=== PATIENT | female | born 1980 | race Caucasian/White ===

== ENCOUNTER 2021-07-22 10:33 | Emergency (ER) | payer MEDICAID ==
[~2021-07-22] VITALS: Ht 167.6 cm; Wt 75.0 kg
[~2021-07-22 10:33] MED LIST: BENZ-16 PO; DICY10CA88 PO; HYDR-3965 PO; HYDR-4383 PO; ONDA4TAB12 PO; ONDA4TAB6 PO; ONDA8TAB9 PO; POLY17PO10 PO; ZOF4T PO
[2021-07-22 10:51] VITALS: BP 129/90
[2021-07-22 11:52] LABS: BASOPHILS % (AUTO) 1.7 % (0-1); EOSINOPHILS # (AUTO) 0.1 X10'3 (0-0.9); EOSINOPHILS % (AUTO) 4.6 % (0-6); HEMATOCRIT 38.5 % (35.0-45.0); HEMOGLOBIN 13.2 g/dl (12.0-16.0); LYMPHOCYTES % (AUTO) 46.2 % (21-51); MEAN CORPUSCULAR HEMOGLOBIN 28.2 PG (27.0-31.0); MEAN CORPUSCULAR HGB CONC 34.3 g/dL (33.0-36.5); MEAN CORPUSCULAR VOLUME 82.4 FL (78-98); MEAN PLATELET VOLUME 6.3 FL (7.4-10.4); MONOCYTES # (AUTO) 0.3 X10'3 (0-0.9); MONOCYTES % (AUTO) 12.4 % (2-12); NEUTROPHILS # (AUTO) 0.8 X10'3 (1.8-7.7); NEUTROPHILS % (AUTO) 35.1 % (42-75); PLATELET COUNT 291 X10'3 (140-440); RED BLOOD COUNT 4.67 X10'6 (4.20-5.60); RED CELL DISTRIBUTION WIDTH 14.2 % (11.5-14.5); WHITE BLOOD COUNT 2.2 X10'3 (4.5-11.0)
[2021-07-22 12:04] LABS: ALANINE AMINOTRANSFERASE 21 U/L (12-78); ALBUMIN 3.5 G/DL (3.4-5.0); ALBUMIN/GLOBULIN RATIO 0.8 (1.1-1.5); ALKALINE PHOSPHATASE 36 IU/L (46-116); ANION GAP 4 (8-16); ASPARTATE AMINO TRANSFERASE 15 U/L (10-37); BILIRUBIN,TOTAL 0.4 MG/DL (0.1-1.0); BLOOD UREA NITROGEN 10 MG/DL (7-18); BUN/CREATININE RATIO 15.6 (6.6-38.0); CALCIUM 8.4 MG/DL (8.5-10.1); CHLORIDE 107 MMOL/L (99-107); CREATININE 0.64 MG/DL (0.40-0.90); GLUCOSE 101 MG/DL (70-104); LIPASE 160 U/L (73-393); POTASSIUM 4.3 MMOL/L (3.5-5.1); SODIUM 140 MMOL/L (135-145); TOTAL CARBON DIOXIDE 29.3 MMOL/L (24-32); eGFR > 90 ML/MIN
[2021-07-22 12:33] LABS: MICROCYTOSIS 1+; PLATELET ESTIMATE NORMAL; TOTAL CELLS COUNTED 100
[2021-07-22] MEDS ORDERED: ONDA4TAB12 PO (12:56)
== END 2021-07-22 13:02 | disposition home or self-care (01) ==
LOC: ER 10:34
DX: U07.1 COVID-19 (principal); R43.8 Other disturbances of smell and taste; E86.0 Dehydration; R10.11 Right upper quadrant pain; R11.0 Nausea; R19.7 Diarrhea, unspecified; R50.9 Fever, unspecified; Z87.01 Personal history of pneumonia (recurrent); Z87.442 Personal history of urinary calculi; Z90.49 Acquired absence of other specified parts of digestive tract; Z98.51 Tubal ligation status; Z98.890 Other specified postprocedural states; Z88.2 Allergy status to sulfonamides; Z88.1 Allergy status to other antibiotic agents; Z88.5 Allergy status to narcotic agent; Z79.899 Other long term (current) drug therapy
CPT/HCPCS: 36415; 71045; 80053; 83690; 85007; 85025; 85379; 99284

== ENCOUNTER 2023-07-18 08:25 | Emergency (ER) | payer MEDICAID ==
[~2023-07-18] VITALS: Ht 167.6 cm; Wt 79.9 kg
[2023-07-18 08:27] VITALS: TEMP 98.3
[2023-07-18] MEDS: diphenhydrAMINE 50 mg/ml inj IV ONE (08:55)
[2023-07-18 09:02] LABS: URINE HCG NEGATIVE (NEG)
[2023-07-18 09:14] LABS: EOSINOPHILS # (AUTO) 0.2 X10'3 (0-0.9); HEMATOCRIT 40.5 % (35.0-45.0); MONOCYTES # (AUTO) 0.5 X10'3 (0-0.9); NEUTROPHILS # (AUTO) 1.6 X10'3 (1.8-7.7)
[2023-07-18 09:17] LABS: BASOPHILS % (AUTO) 1.3 % (0-1); EOSINOPHILS % (AUTO) 4.8 % (0-6); HEMOGLOBIN 13.5 g/dl (12.0-16.0); LYMPHOCYTES % (AUTO) 31.2 % (21-51); MEAN CORPUSCULAR HEMOGLOBIN 28.5 PG (27.0-31.0); MEAN CORPUSCULAR HGB CONC 33.3 g/dL (33.0-36.5); MEAN CORPUSCULAR VOLUME 85.5 FL (78-98); MEAN PLATELET VOLUME 6.1 FL (7.4-10.4); MONOCYTES % (AUTO) 14.3 % (2-12); NEUTROPHILS % (AUTO) 48.4 % (42-75); PLATELET COUNT 234 X10'3 (140-440); RED BLOOD COUNT 4.74 X10'6 (4.20-5.60); RED CELL DISTRIBUTION WIDTH 13.9 % (11.5-14.5); WHITE BLOOD COUNT 3.3 X10'3 (4.5-11.0)
[2023-07-18 09:30] LABS: BILIRUBIN,URINE NEGATIVE (Neg); CLARITY,URINE SLIGHTLY CLOUDY (Clear); COLOR,URINE YELLOW (Yellow); GLUCOSE, URINE NEGATIVE (Neg); KETONES,URINE NEGATIVE (Neg); LEUKOCYTE ESTERASE ,URINE NEGATIVE (Neg); NITRITES, URINE NEGATIVE (Neg); OCCULT BLOOD,URINE SMALL (Neg); PROTEIN,URINE NEGATIVE (Neg); UROBILINOGEN,URINE 0.2 E.U/dL (0.2-1.0)
[2023-07-18 09:37] LABS: UA COLLECTION TYPE CLN CATCH MIDSTREAM
[2023-07-18 09:38] LABS: SQUAMOUS EPITHELIAL CELL,UR MANY /LPF (FEW)
[2023-07-18 09:40] LABS: BACTERIA,URINE 1+ /HPF (Neg); WBC,URINE 0-4 /HPF (0-4)
[2023-07-18 10:04] LABS: ALBUMIN 3.4 G/DL (3.4-5.0); CALCIUM 8.7 MG/DL (8.5-10.1); TOTAL CARBON DIOXIDE 26.3 MMOL/L (24-32)
[2023-07-18 10:06] LABS: ANION GAP 8 (8-16); BLOOD UREA NITROGEN 25 MG/DL (7-18); BUN/CREATININE RATIO 34.7 (10.0-20.0); CHLORIDE 103 MMOL/L (99-107); CREATININE 0.72 MG/DL (0.40-0.90); GLUCOSE 106 MG/DL (70-104); POTASSIUM 3.9 MMOL/L (3.5-5.1); SODIUM 137 MMOL/L (135-145); eCRCL 93 ML/MIN; eGFR 88 ML/MIN
[2023-07-18] MEDS: CefTRIAXone 2gm/D5W 50ml BAG 50 ML IV ONE (14:21)
[2023-07-18] MEDS: metoclopramide 5 mg/ml inj IV ONE (14:22)
[2023-07-18] MEDS: normal saline 1000ml 1,000 ML IVB ONE (14:22)
[2023-07-18] MEDS: magnesium 1 gm/2ml inj. 1 GM in normal saline 50ml IV soln 50 ML IV ONE (14:33)
[2023-07-18] MEDS: LIDOcaine 1% 30ml preserv. free vial IJ STA (17:00)
[2023-07-18 18:24] LABS: GLUCOSE,CSF 64 MG/DL (40-75); TOTAL PROTEIN,CSF 42 MG/DL (15-45)
[2023-07-18 18:58] LABS: APPEARANCE,CSF CLEAR; CSF SUPERNATANT COLOR COLORLESS
[2023-07-18 18:59] LABS: CSF VOLUME 4 ML; TUBE# COUNTED 4
[2023-07-18 19:00] LABS: CSF RBC 0 /CU MM (0)
[2023-07-18 19:03] LABS: CSF WBC CT 1 /CU MM (0-5)
[2023-07-18] MEDS ORDERED: IBUP-1984 PO (19:21)
[2023-07-18] MEDS ORDERED: CLIN300C3 PO (19:21)
[2023-07-18] MEDS: HYDROcodone/acetaminophen 5mg/325mg tablet PO ONE (19:41)
[2023-07-18 20:33] VITALS: BP 128/76; PULSE 79; RESP 17; O2SAT 98
[2023-07-18 21:23] LABS: URINE AMPHETAMINE SCREEN NEGATIVE (Neg); URINE BARBITUATE SCREEN NEGATIVE (Neg); URINE BENZODIAZEPINES SCREEN NEGATIVE (Neg); URINE CANNABINOID SCREEN NEGATIVE (Neg); URINE COCAINE SCREEN NEGATIVE (Neg); URINE METHADONE SCREEN NEGATIVE (Neg); URINE OPIATE SCREEN NEGATIVE (Neg); URINE PHENCYCLIDINE SCREEN NEGATIVE (Neg)
== END 2023-07-18 20:35 | disposition home or self-care (01) ==
LOC: ER 08:26
DX: J32.3 Chronic sphenoidal sinusitis (principal); R51.9 Headache, unspecified; Z88.2 Allergy status to sulfonamides; Z88.1 Allergy status to other antibiotic agents; Z88.5 Allergy status to narcotic agent; Z79.899 Other long term (current) drug therapy; Z90.49 Acquired absence of other specified parts of digestive tract; Z98.51 Tubal ligation status
CPT/HCPCS: 36415; 62270; 70450; 70486; 71045; 80048; 80305; 81001; 81025; 82945; 83605; 84145; 84157; 85025; 87015; 87040; 87070; 89051; 96365; 96367; 96375; 99285; J0696; J2765; J3475; J3490; J7030; A6449